=== PATIENT | male | born 1970 | race Caucasian/White ===

== ENCOUNTER → 2016-05-14 | Outpatient (CLI) | payer OTHER ==
[~2016-05-14] MED LIST: ALBUTEROL17 GM INH; AMIODARONE; COUMADIN PO; COUMADIN5 MG; COUMADIN5 MG PO; FLOVENT7.9 GM INH; LISINOPRIL; LISINOPRIL PO; MOTION SICKNESS25 M4 PO; NEXIUM PO; PACERONE PO; PHENERGAN25 MG PO; PREVACID PO; PROTONIX PO; PROVENTAL; SYNTHROID75 MCG PO; TOPROL XL PO; TOPROL XL50 MG PO; VICODIN 5/500 T1 TAB PO; ZOCOR10 MG PO
--- NOTE | ~2016-05-14 | CR186 ---
[facility] RADIOLOGY TEXT RESULTS PATIENT: TERESO SANTOS LOCATION: [facility] : 72 UNIT #: [id number] AGE: [address]: Isabel Moreno MD SEX: M ORDER DR: [id number] [facility] [address] [place], [place] [address] [id number] O MR#: [id number] Acc #: [id number] NAME: TERESO SANTOS. : 1970 SEX: M STUDY DATE/TIME: 05/14/2016 14:12 UNIT: [facility] ROOM: STUDY DESCRIPTION: CR Lumbar Spine W Bend Min 6 V Attending Physician: Isabel Moreno M.D. Referring Physician: Isabel Moreno M.D. Ordering Physician: Isabel Moreno M.D. Primary Care Physician: Isabel Moreno M.D. MEDICAL IMAGING REPORT This report is preliminary unless electronic signature is present EXAM Lumbar spine with obliques and flexion/extension views HISTORY Lower back pain x2 weeks after lifting heavy objects. FINDINGS AP lateral and flexion/extension lateral views were obtained as well as oblique views of the lumbar spine. Examination demonstrates no fracture or malalignment. Normal lumbar motion on flexion/extension views. Minimal endplate sclerosis anterior hypertrophic changes but no significant disc space narrowing. Posterior elements unremarkable. No spondylolysis or spondylolisthesis. SI joints and soft tissues unremarkable. IMPRESSION Mild multilevel degenerative disc changes lumbar spine. Normal lumbar motion. Dictated by... Mario Treviño M.D. THIS IS AN ELECTRONICALLY VERIFIED REPORT Mario Treviño M.D. at 05/15/2016 8:42 PM Arabella TD: 05/15/2016 08:28 JOB #: [id number] MEDICAL IMAGING REPORT COPY
== END | disposition home or self-care (01) ==
LOC: CRAD 13:53
DX: M51.36 Other intervertebral disc degeneration, lumbar region (principal); M47.816 Spondylosis without myelopathy or radiculopathy, lumbar region
CPT/HCPCS: 72114